=== PATIENT | male | born 1995 ===

== ENCOUNTER 2017-06-02 07:25 | Emergency (ER) | payer OTHER ==
[~2017-06-02] VITALS: Ht 170.2 cm; Wt 68.0 kg
[~2017-06-02 07:25] MED LIST: SERT50TA PO
[2017-06-02 07:27] VITALS: TEMP 36.6; Ht 170.2 cm; Wt 68.0 kg
--- NOTE | 2017-06-02 08:08 | EMERGENCY ROOM VISIT NOTE ---
History First contact with patient: 07:32 Chief Complaint: ANKLE PAIN Stated Complaint: ANKLE PAIN History of Present Illness The patient is a 21 year old male who presents to the Emergency Room with complaints of right ankle pain. He twisted his ankle two weeks ago whilst walking on an uneven pavement. He everted it and stumbled, but did not fall. He states that at this time, his ankle was swollen, but he was able to bear weight. Yesterday, he twisted his ankle again with the same mechanism, but this time, he stated it was slightly more swollen and he had difficulty weight- bearing due to pain. He rested his ankle overnight and iced it intermittently. He states the swelling has decreased since yesterday, but it is still painful for him to ambulate. Pain is 3/10 at rest and 7/10 with ambulation. No previous injuries to that ankle, no prior surgeries. Denies alcohol use in conjunction with these injuries. Review of Systems Review of systems negative except as noted. Constitutional: No fever, No chills, No sweats Respiratory: No cough Cardiovascular: No chest pain Abdomen: No pain, No nausea, No vomiting Musculoskeletal: No calf pain Neurologic: No memory loss, No paralysis, No weakness, No numbness/tingling Past Medical/Surgical History Medical Problems: (1) Ankle sprain (2) Asthma Surgical Problems: (1) Hx of appendectomy Family History Patient reports no known family medical history. Social History Smoking Status: Current Some Day Smoker Drug Use: none Marital Status: single Housing Status: lives with roommate Occupation Status: [employer] student Current/Historical Medications No Active Prescriptions or Reported Meds Physical Exam Vital Signs Date Time Temp Pulse Resp B/P (MAP) Pulse Ox O2 Delivery O2 Flow Rate FiO2 06/02/17 07:27 36.6 78 18 123/71 97 Room Air Physical Exam No pertinent findings except as noted. General Appearance: WD/WN, no apparent distress Head: normocephalic, atraumatic Respiratory/Chest: chest non-tender, lungs clear, normal breath sounds, no respiratory distress, no accessory muscle use Cardiovascular: regular rate, rhythm, no edema, no gallop, no JVD, no murmur , normal peripheral pulses Abdomen / GI: normal bowel sounds, non tender, soft Extremities: no calf tenderness, normal capillary refill, no pedal edema, + pertinent finding (Right ankle - swollen distal to lateral malleolus. No bruising. Not tender to palpation over either malleoli but tender over metatarsals and distal to lateral malleoli. Pain with plantarflexion and dorsiflexion.) Medical Decision & Procedures ER Provider Diagnostic Interpretation: Right Ankle Xray: No fracture or dislocation. Mild soft tissue swelling. No radiopaque foreign bodies. Medical Decision Patient was assessed in room B6. Given his inability to bear weight, he was sent for an xray of his right ankle. The results are as above. He was discharged home with an ankle splint, and told to rest, ice, compress and elevate his foot, and use Tylenol and Ibuprofen for pain management. He was also counselled on following up with his PCP if his pain worsens/does not resolve in a week. Medication Reconcilliation Current Medication List: was personally reviewed by me Impression Primary Impression: Right ankle sprain Departure Information Dispostion Home / Self-Care Prescriptions No Active Prescriptions or Reported Meds Referrals [facility] (PCP) Patient Instructions My [facility]
--- NOTE | 2017-06-02 08:25 | DIAGNOSTIC IMAGING REPORT ---
RIGHT ANKLE 3 VIEWS HISTORY: right lateral ankle pain s/p twisting ankle COMPARISON: None. FINDINGS: There is no fracture or dislocation. Mild soft tissue swelling. No radiopaque foreign bodies. IMPRESSION: No fractures. Electronically signed by: Juan R Forman M.D. 06/02/2017 8:24 AM Dictated Date/Time: 06/02/2017 8:23 AM
--- NOTE | 2017-06-02 08:37 | EMERGENCY ROOM VISIT NOTE ---
History Report prepared by [place]: Asya Hernandez Under the Supervision of: Dr. Jorge Miller M.D. First contact with patient: 07:32 Chief Complaint: ANKLE PAIN Stated Complaint: ANKLE PAIN History of Present Illness The patient is a 21 year old male who presents to the Emergency Room with complaints of persistent right ankle pain that began last evening. He currently rates his discomfort as a 7/10 in severity. The patient states that two weeks ago he stumbled and twisted his right ankle. He states that his ankle was swollen at the time and bruised, but denies seeking any medical attention. The patient states that he was able to weight bear at the time. He states that last evening he had an identical mechanism of injury, although this morning he could no longer weight bear. The patient states that his swelling went down after icing the area. The patient denies any active medical problems or previous surgeries. Source of History: patient Onset: last evening Position: ankle (right) Symptom Intensity: 7/10 Timing: other (persistent) Note: Associated Symptoms: unable to bear weight, right ankle swelling. Review of Systems See HPI for pertinent positives & negatives. A total of 6 systems reviewed and were otherwise negative. Past Medical & Surgical Medical Problems: (1) Ankle sprain (2) Asthma Surgical Problems: (1) Hx of appendectomy Family History Patient reports no known family medical history. Social History Smoking Status: Current Some Day Smoker Drug Use: none Marital Status: single Housing Status: lives with roommate Occupation Status: [employer] student Current/Historical Medications No Active Prescriptions or Reported Meds Allergies Coded Allergies: No Known Allergies (Unverified , 06/02/17) Physical Exam Vital Signs Date Time Temp Pulse Resp B/P (MAP) Pulse Ox O2 Delivery O2 Flow Rate FiO2 06/02/17 09:49 75 18 109/72 97 06/02/17 07:27 36.6 78 18 123/71 97 Room Air Physical Exam GENERAL: Patient is well appearing and in no acute distress. HEENT: No acute trauma, normocephalic atraumatic, mucous membranes moist, no nasal congestion, no scleral icterus. NECK: No stridor, no adenopathy, no meningismus, trachea is midline. EXTREMITIES: Tenderness to palpation over the right lateral ankle, just distal to the lateral malleolus. Mild pain with range of motion of the ankle, distal NV intact, minimal swelling noted. NEUROLOGIC: Alert and oriented, no acute motor or sensory deficits, no focal weakness, cranial nerves grossly intact. SKIN: No rash, no jaundice, no diaphoresis. Medical Decision & Procedures ER Provider Diagnostic Interpretation: X ray results are stated below per my interpretation and the radiologist's interpretation. RIGHT ANKLE 3 VIEWS HISTORY: right lateral ankle pain s/p twisting ankle COMPARISON: None. FINDINGS: There is no fracture or dislocation. Mild soft tissue swelling. No radiopaque foreign bodies. IMPRESSION: No fractures. Electronically signed by: Juan R Forman M.D. 06/02/2017 8:24 AM Dictated Date/Time: 06/02/2017 8:23 AM ED Course 0734: The patient was evaluated in room B6. A complete history and physical exam was performed by Dr. Ahumada, [employer]. 0753: The patient was evaluated in room B6. A complete history and physical exam was performed. 0838: Dr. Ahumada, [employer] reevaluated the patient and he is resting comfortably. She discussed the exam findings with the patient and she discussed the treatment plan. The patient verbalized complete understanding and agreement. The patient is ready for discharge. Medical Decision Differential diagnosis includes, fracture, dislocation, sprain, septic joint amongst others. 21 yr old male with twisted ankle twice in last 2 weeks. Mild swelling. No fracture on imaging. Looks well and no other issues. No TTP over fibular head nor mid leg. Gel splint and crutches. Discussed Tyl/Motrin as needed. Impression Primary Impression: Right ankle sprain Scribe Attestation The scribe's documentation has been prepared under my direction and personally reviewed by me in its entirety. I confirm that the note above accurately reflects all work, treatment, procedures, and medical decision making performed by me. Departure Information Dispostion Home / Self-Care Prescriptions No Active Prescriptions or Reported Meds Referrals [facility] (PCP) Forms HOME CARE DOCUMENTATION FORM, IMPORTANT VISIT INFORMATION Patient Instructions ED Sprain Ankle, My [facility]
[2017-06-02 09:49] VITALS: BP 109/72; PULSE 75; O2SAT 97
== END 2017-06-02 09:50 | disposition home or self-care (01) ==
LOC: EDBD 07:25 → C.EDB 07:27
DX: S93.401A Sprain of unspecified ligament of right ankle, initial encounter (principal); X58.XXXA Exposure to other specified factors, initial encounter; J45.909 Unspecified asthma, uncomplicated; F17.200 Nicotine dependence, unspecified, uncomplicated; Z87.828 Personal history of other (healed) physical injury and trauma; Z98.890 Other specified postprocedural states